=== PATIENT | female | born 1945 | race American Indian/Alaskan Native ===

== ENCOUNTER 2017-06-19 12:44 | Observation (INO) | payer MEDICARE, OTHER ==
[2017-06-19 12:59] VITALS: BMI 27.9
--- NOTE | 2017-06-19 13:07 | ED PDOC ---
Arrival/HPI <Glenn Portillo - Last Filed: 06/19/17 14:42> - General Historian: Patient - History of Present Illness Time/Duration: 1-3 hours (1.5 hrs prior to arrival) <Rafia Kwan - Last Filed: 06/19/17 14:57> - General Chief Complaint: Headache Time Seen by Provider: 06/19/17 12:48 - History of Present Illness Narrative History of Present Illness (Text): 06/19/17 12:52 CC: headache and eye problem Patient states about 11:30am, (1.5 hours ago) patient felt a headache on right temporal region that radiated down her right jaw. Patient stated the pain was sharp. Patient states the pain is no longer there. Patient states her right arm intermittently feels weaker than the left and feels this way today. Patient is right handed and states she feels that she just can't fully use her right arm. Patient states on Sunday, patient had a cloud covering half of her eye, she saw a Dr. Su in [place] who sent her to another doctor who sent her to Dr. Brasher who explained that the patient has an emboli in her vascular supply to her eye and that it was not fixable. Patient told Dr. Russo about the headache and right arm weakness and Dr. Russo told patient to come to ED. PMH: none PSH: none Family history: "mini-stroke"/TIAs, no known coagulopathy PMD: Dr. Russo (Rafia Kwan) Past Medical History - Provider Review Nursing Documentation Reviewed: Yes - Travel History Have you recently traveled outside [place] w/in the past 3 mons?: No <Rafia Kwan - Last Filed: 06/19/17 14:57> Family/Social History - Physician Review Nursing Documentation Reviewed: Yes Family/Social History: CVA/TIA, Diabetes (late onset) <Rafia Kwan - Last Filed: 06/19/17 14:57> Allergies/Home Meds <Glenn Portillo - Last Filed: 06/19/17 14:42> <Rafia Kwan - Last Filed: 06/19/17 14:57> Allergies/Adverse Reactions: Allergies blueberry Allergy (Verified 06/19/17 13:18) RASH Review of Systems - Physician Review All systems were reviewed & negative as marked: Yes - Review of Systems Eyes: Vision Changes (since sunday. curtain over part of right eye) ENT: Normal. absent: Hearing Changes, Tinnitus, Voice Changes Respiratory: Normal. absent: SOB, Cough, Sputum Cardiovascular: absent: Chest Pain, Palpitations, Edema Gastrointestinal: Diarrhea. absent: Abdominal Pain, Stool Changes, Constipation Genitourinary Female: absent: Dysuria, Frequency, Hematuria Musculoskeletal: Other (right arm weakness). absent: Arthralgias, Back Pain, Neck Pain Neurological: Headache (right temporal to jaw). absent: Speech Changes, Facial Droop, Disequilibrium Endocrine: absent: Diaphoresis, Polyuria, Polydipsia Psychiatric: absent: Anxiety, Depression, Suicidal Ideation <Eng,Rafia - Last Filed: 06/19/17 14:57> Physical Exam Temperature: Afebrile Blood Pressure: Normal Pulse: Regular Respiratory Rate: Normal Appearance: Positive for: Uncomfortable Mental Status: Positive for: Alert and Oriented X 3 - Systems Exam Head: Present: Atraumatic, Normocephalic. No: Contusion Pupils: Present: PERRL, Other (arcus senilis) Extroacular Muscles: Present: EOMI Conjunctiva: Present: Normal. No: Injected, Icteric Mouth: Present: Moist Mucous Membranes, Normal Lips, Normal Tounge. No: Dry, Drooling, Trismus Pharnyx: Present: Normal. No: ERYTHEMA, EXUDATE, TONSILS ENLARGED, Uvular Deviation Nose (External): Present: Atraumatic. No: Abrasion, Contusion, Laceration Respiratory/Chest: Present: Clear to Auscultation, Good Air Exchange. No: Respiratory Distress, Accessory Muscle Use Cardiovascular: Present: Regular Rate and Rhythm, Normal S1, S2 Abdomen: Present: Normal Bowel Sounds. No: Tenderness, Distention, Peritoneal Signs Upper Extremity: Present: Normal Inspection, Normal ROM, NORMAL PULSES, Capillary Refill < 2s. No: Edema Lower Extremity: Present: Normal Inspection, NORMAL PULSES, Normal ROM, Capillary Refill < 2 s. No: Edema Neurological: Present: GCS=15, CN II-XII Intact Skin: Present: Warm, Dry, Normal Color. No: Rashes Psychiatric: Present: Alert, Oriented x 3, Normal Insight, Normal Concentration <Eng,Rafia - Last Filed: 06/19/17 14:57> Vital Signs Temp Pulse Resp BP Pulse Ox 06/19/17 12:59 97.7 F 77 16 120/67 100 Medical Decision Making <Glenn Portillo - Last Filed: 06/19/17 14:42> Re-evaluation Time: 13:45 Reassessment Condition: Improved - EKG Interpretation Interpreted by ED Physician: Yes (NSR @63bpm) Type: 12 lead EKG <Rafia Kwan - Last Filed: 06/19/17 14:57> ED Course and Treatment: 06/19/17 14:13 Seen and examined with the resident. Our history and physical exam reveals an elderly woman who complains of acute onset of right-sided headache and right upper extremity weakness at approximately 11 AM today. Resident saw the patient prior to my arrival and ordered a CT scan and the patient was taken to CAT scan prior to my examination. The resident describes right upper extremity weakness, though on my examination there is no right upper extremity weakness. Resident reports that her weakness has resolved since she came back from CAT scan. The rest of her neurological examination is within normal limits. NIH is a 0. Patient is not a TPA candidate as her symptoms are too mild. 06/19/17 14:42 Discussed with , who will place on telemetry observation and consult with neurology. (Glenn Portillo) 06/19/17 13:25 Ct head without contrast, negative for acute stroke 06/19/17 14:54 EKG, CBC, CMP, Cardiac ISO NIH score 0 (Rafia Kwan) - Lab Interpretations Lab Results: 06/19/17 14:15 06/19/17 14:15 Lab Results 06/19/17 14:15: Sodium 144, Potassium 4.4, Chloride 105, Carbon Dioxide 28, Anion Gap 15, BUN 15, Creatinine 1.1, Est GFR ( Amer) 59, Est GFR (Non- Af Amer) 49, Random Glucose 68 L, Calcium 9.7, Total Bilirubin 0.2, AST 30, ALT 26, Alkaline Phosphatase 73, Lactate Dehydrogenase 417, Total Creatine Kinase 142, Troponin I < 0.01, Total Protein 7.3, Albumin 4.0, Globulin 3.4, Albumin/ Globulin Ratio 1.2 06/19/17 14:15: WBC 4.5, RBC 4.09, Hgb 10.8 L, Hct 34.6 L, MCV 84.6, MCH 26.4, MCHC 31.2, RDW 14.7 H, Plt Count 234, MPV 9.8, Gran % 30.0 L, Lymph % (Auto) 61.8 H, Phelps % (Auto) 6.0, Eos % (Auto) 1.5, Baso % (Auto) 0.7, Gran # 1.36 L, Lymph # (Auto) 2.8, Phelps # (Auto) 0.3, Eos # (Auto) 0.1, Baso # (Auto) 0.03 - RAD Interpretation Narrative RAD Interpretations (Text): 06/19/17 13:59 ct scan head without contrast: no active bleed or ischemic stroke noted (Rafia Kwan) Radiology Orders: 06/19/17 13:21 HEAD W/O CONTRAST [CT] Stat - Medication Orders Current Medication Orders: Discontinued Medications Aspirin (Aspirin) 325 mg PO STAT STA Stop: 06/19/17 14:00 Last Admin: 06/19/17 14:11 Dose: 325 mg Disposition/Present on Arrival - Present on Arrival Any Indicators Present on Arrival: No History of DVT/PE: No History of Uncontrolled Diabetes: No Urinary Catheter: No History of Decub. Ulcer: No - Disposition Have Diagnosis and Disposition been Completed?: Yes Disposition Time: 14:43 Patient Plan: Observation, Telemetry <Glenn Portillo - Last Filed: 06/19/17 14:42> - Present on Arrival Any Indicators Present on Arrival: No History of DVT/PE: No History of Uncontrolled Diabetes: No Urinary Catheter: No History of Decub. Ulcer: No - Disposition Have Diagnosis and Disposition been Completed?: Yes <Rafia Kwan - Last Filed: 06/19/17 14:57> - Disposition Diagnosis: Transient ischemic attack, Headache Disposition: HOSPITALIZED Patient Problems: Current Active Problems Problem Status Onset Transient ischemic attack Acute Headache Acute Condition: GOOD Forms: [employer] ([place])
--- NOTE | 2017-06-19 13:51 | CT ---
PROCEDURE: CT HEAD WITHOUT CONTRAST. HISTORY: right arm < Left arm strength. COMPARISON: None available. TECHNIQUE: Axial computed tomography images were obtained through the head/brain without intravenous contrast. Radiation dose: Total exam DLP = 778.54 mGy-cm. This CT exam was performed using one or more of the following dose reduction techniques: Automated exposure control, adjustment of the mA and/or kV according to patient size, and/or use of iterative reconstruction technique. FINDINGS: HEMORRHAGE: No intracranial hemorrhage. BRAIN: No mass effect or edema. No atrophy or chronic microvascular ischemic changes. VENTRICLES: Unremarkable. No hydrocephalus. CALVARIUM: Unremarkable. PARANASAL SINUSES: Unremarkable as visualized. No significant inflammatory changes. MASTOID AIR CELLS: Unremarkable as visualized. No inflammatory changes. OTHER FINDINGS: None. IMPRESSION: Normal CT of the Head. No intracranial mass, hemorrhage or evidence of acute infarct.
[2017-06-19 14:31] LABS: BASO # 0.03 K/mm3 (0.0-2.0); BASO % 0.7 % (0.0-3.0); EOS # 0.1 (0.0-0.7); EOS % 1.5 % (1.5-5.0); GRAN # 1.36 (1.4-6.5); HEMOGLOBIN 10.8 g/dL (12.0-16.0); LYMPH # 2.8 (1.2-3.4); LYMPH % 61.8 % (22.0-35.0); MEAN CELL VOLUME 84.6 fl (80.0-105.0); MEAN CORPUSCULAR HEMOGLOBIN 26.4 pg (25.0-35.0); MEAN CORPUSCULAR HGB CONC 31.2 g/dl (31.0-37.0); MEAN PLATELET VOLUME 9.8 fl (7.0-11.0); MONO # 0.3 (0.1-0.6); RBC 4.09 10^6/uL (3.5-6.1); RED CELL DISTRIBUTION WIDTH 14.7 % (11.5-14.5); WHITE BLOOD COUNT 4.5 10^3/ul (4.5-11.0)
[2017-06-19 14:37] LABS: ALB/GLOB RATIO 1.2 (1.1-1.8); ALT/SGPT 26 U/L (7-56); AST/SGOT 30 U/L (14-36); BLOOD UREA NITROGEN 15 mg/dL (7-21); CALCIUM 9.7 mg/dL (8.4-10.5); GFR AFRICAN-AMERICAN 59; GFR NON-AFRICAN AMERICAN 49
[2017-06-19] MEDS ORDERED: DEXTROSE 4 GM PO ONE (14:40)
[2017-06-19 14:49] LABS: TROPONIN I < 0.01 ng/mL
--- NOTE | 2017-06-19 15:47 | CP.PCM.CON ---
<Myah Navarro - Last Filed: 06/19/17 17:45> History of Present Illness - History of Present Illness History of Present Illness: PGY-[address] Bolton Consult: headache and eye problem Ms Teresa Goldman, 71F, c/o headache radiating to jaw and R arm weakness. Pt was diagnosed with an emboli at her eye blood vessel 3 days ago. Today, pt experienced a headache, sharp, radiating from R temporal region radiating down her right jaw, associated with R arm weakness. Patient is right handed and states she feels that she just can't fully use her right arm. All symptoms resolved while evaluated by the ED physician. (+) stress in family On Sunday, patient had a cloud covering half of her eye, she saw a Dr. Su in [place] who sent her to another doctor who sent her to Dr. Brasher who explained that the patient has an emboli in her vascular supply to her eye and that it was not fixable. Ct scan head without contrast: no active bleed or ischemic stroke noted MRA Head: unremarkable MRI head: No acute finding. 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 Denies drink, drug , smoke. All: blueberry Med: None PMD: Dr. Russo ([facility]) Review of Systems - Review of Systems All systems: reviewed and no additional remarkable complaints except Review of Systems: as in HPI Past Patient History - Past Social History Smoking Status: Never Smoked - CARDIAC Hx Cardiac Disorders: No - PULMONARY Hx Respiratory Disorders: No - NEUROLOGICAL Hx Neurological Disorder: No - HEENT Hx HEENT Problems: No - RENAL Other/Comment: bladder cancer - PSYCHIATRIC Hx Substance Use: No - SURGICAL HISTORY Other/Comment: Neobladder reconstruction 2007 - ANESTHESIA Hx Anesthesia: Yes Hx Anesthesia Reactions: No Hx Malignant Hyperthermia: No Meds Allergies/Adverse Reactions: Allergies Allergy/AdvReac Type Severity Reaction Status Date / Time blueberry Allergy RASH Verified 06/19/17 13:18 - Medications Medications: Current Medications Acetaminophen/Butalbital/Caffeine (Fioricet) 1 tab PO Q4H PRN PRN Reason: Headache Physical Exam - Constitutional Appears: Well - Head Exam Head Exam: ATRAUMATIC, NORMAL INSPECTION, NORMOCEPHALIC - Eye Exam Eye Exam: EOMI, Normal appearance, PERRL. absent: Scleral icterus Pupil Exam: NORMAL ACCOMODATION - ENT Exam ENT Exam: Mucous Membranes Moist - Neck Exam Additional comments: supple - Respiratory Exam Respiratory Exam: Clear to Auscultation Bilateral, NORMAL BREATHING PATTERN. absent: Rales, Rhonchi, Wheezes - Cardiovascular Exam Cardiovascular Exam: REGULAR RHYTHM, +S1, +S2 - Extremities Exam Extremities exam: Negative for: calf tenderness, tenderness - Neurological Exam Neurological exam: Alert, Oriented x3 Additional comments: CN 2-12 intact except LOSS OF UPPER VISUAL FIELD of R eye Speech: No aphasia motor: move all extremities equally sensory: intact [id number] coordination: intact. No overshoot - Psychiatric Exam Psychiatric exam: Normal Affect, Normal Mood - Skin Skin Exam: Dry, Normal Color Results - Vital Signs Recent Vital Signs: Last Vital Signs Temp 97.7 F 06/19/17 12:59 Pulse 73 06/19/17 15:24 Resp 16 06/19/17 15:24 BP 128/70 06/19/17 15:24 Pulse Ox 99 06/19/17 15:24 - Labs Result Diagrams: 06/19/17 14:15 06/19/17 14:15 Assessment & Plan - Assessment and Plan (Free Text) Plan: Ms Teresa Goldman, 71F, c/o R temporal headache with jaw pain and R arm weakness. Pt was diagnosed with an emboli at her R eye blood vessel 3 days ago. ROS is (+) for stress in family. Physical exam is (+) loss of upper visual field of R eye. Her [id number] coordination is intact. MRA Head is unremarkable. 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 Neurology ordered ESR, pending result. Tension Headache with mild migraine component - Fioricet q4 PRN for Headache loss of upper visual field of R eye secondary to emboli at R eye blood vessel Hx old lacuna stroke from R MCA distribution - Telemetry for possible arrthymia - Opthalmologist consult - Initiate ASA 81 and lipitor 40 <Rufino Bolton - Last Filed: 06/20/17 09:22> Meds - Medications Medications: Current Medications Acetaminophen/Butalbital/Caffeine (Fioricet) 1 tab PO Q4H PRN PRN Reason: Headache Last Admin: 06/20/17 02:22 Dose: 1 tab Aspirin (Ecotrin) 81 mg PO DAILY [facility] Atorvastatin Calcium (Lipitor) 40 mg PO HS [facility] Last Admin: 06/19/17 21:04 Dose: 40 mg Results - Vital Signs Recent Vital Signs: Last Vital Signs Temp 97.3 F L 06/20/17 06:00 Pulse 93 H 06/20/17 06:00 Resp 20 06/20/17 06:00 BP 117/71 06/20/17 06:00 Pulse Ox 98 06/20/17 06:00 - Labs Result Diagrams: 06/19/17 14:15 06/19/17 14:15 Labs: Laboratory Results - last 24 hr 06/19/17 06/20/17 19:15 07:29 ESR 74 H POC Glucose (mg/dL) 126 H Attending/Attestation - Attestation I have personally seen and examined this patient.: Yes I have fully participated in the care of the patient.: Yes I have reviewed all pertinent clinical information: Yes
[2017-06-19] MEDS ORDERED: methylPREDNISolone 1 GM in Sodium Chloride 0.9% 250 ML IV ONE (16:45)
--- NOTE | 2017-06-19 16:59 | MRI ---
PROCEDURE: MRI BRAIN WITHOUT CONTRAST HISTORY: headache cva COMPARISON: None. TECHNIQUE: Multiplanar, multisequence MR images of the brain were obtained without intravenous contrast enhancement. FINDINGS: HEMORRHAGE: None DWI: No evidence of an acute or early subacute infarction. BRAIN PARENCHYMA: No mass effect or edema. Minimal microvascular changes. No evidence of atrophy VENTRICLES: Unremarkable. No hydrocephalus. CRANIUM: Unremarkable. ORBITS: Grossly unremarkable. PARANASAL SINUSES/MASTOIDS: Clear VASCULAR SYSTEM: Skull base flow voids intact. OTHER FINDINGS: None. IMPRESSION: No acute finding
--- NOTE | 2017-06-19 17:16 | MRI ---
PROCEDURE: Magnetic Resonance Angiography Brain HISTORY: headache COMPARISON: None available. TECHNIQUE: 3D time of flight MR angiography of the intracranial arteries was performed. Rotating maximum intensity projection images were generated. FINDINGS: INTERNAL CAROTID ARTERIES: Unremarkable. The skull base, petrous, cavernous and supraclinoid segments are bilaterally widely patient. ANTERIOR CEREBRAL ARTERIES: Unremarkable. A1 and A2 segments are widely patent. Smaller distal branches unremarkable, as visualized. MIDDLE CEREBRAL ARTERIES: Unremarkable. M1 and M2 segments are widely patent. Perisylvian branches grossly symmetric. POSTERIOR CIRCULATION: Basilar Artery: Unremarkable. Distal Vertebral Arteries: Unremarkable. Posterior Cerebral Arteries: Unremarkable. Posterior Inferior Cerebellar Arteries: Unremarkable. ANEURYSM/ VASCULAR MALFORMATIONS: None. OTHER FINDINGS: None. IMPRESSION: Unremarkable MR angiography of the brain.
[2017-06-19] MEDS: Apap-Butalbital-Caffeine 325-50-40mg Tab PO PRN (21:39)
--- NOTE | 2017-06-19 22:00 | CARD ---
APPROVED REPORT EKG Measurement Heart [id number] <Conclusion> Normal sinus rhythm Normal ECG
[2017-06-20] MEDS: Apap-Butalbital-Caffeine 325-50-40mg Tab PO PRN ×2 (02:22→09:39)
[2017-06-20 06:00] VITALS: O2SAT 98
[2017-06-20] MEDS ORDERED: methylPREDNISolone 1 GM in Sodium Chloride 0.9% 250 ML IV ONE (10:22)
--- NOTE | 2017-06-20 10:34 | CP.PCM.PN ---
<MelanieMyah - Last Filed: 06/20/17 10:31> Subjective - Date & Time of Evaluation Date of Evaluation: 06/20/17 Time of Evaluation: 10:31 - Subjective Subjective: Neurology PGY-[address] Bolton Pt states that R temporal and R jaw pain resolved. Started L headache. just took fioricet. No change in vision, dizziness, CP, SOB, arm weakness. Objective - Vital Signs/Intake and Output Vital Signs (last 24 hours): Temp Pulse Resp BP Pulse Ox 97.3 F L 93 H 20 117/71 98 06/20/17 06:00 06/20/17 06:00 06/20/17 06:00 06/20/17 06:00 06/20/17 06:00 Intake and Output: 06/20/17 06/20/17 06:59 18:59 Intake Total 540 Balance 540 - Medications Medications: Current Medications Acetaminophen/Butalbital/Caffeine (Fioricet) 1 tab PO Q4H PRN PRN Reason: Headache Last Admin: 06/20/17 09:39 Dose: 1 tab Aspirin (Ecotrin) 81 mg PO DAILY [facility] Last Admin: 06/20/17 09:39 Dose: 81 mg Atorvastatin Calcium (Lipitor) 40 mg PO HS [facility] Last Admin: 06/19/17 21:04 Dose: 40 mg Methylprednisolone 1 gm/ (Sodium Chloride) 250 mls @ 500 mls/hr IV ONCE ONE Stop: 06/20/17 10:51 - Constitutional Appears: No Acute Distress - Head Exam Head Exam: ATRAUMATIC, NORMAL INSPECTION, NORMOCEPHALIC - Eye Exam Eye Exam: EOMI, Normal appearance, PERRL Pupil Exam: NORMAL ACCOMODATION - ENT Exam ENT Exam: Mucous Membranes Moist - Neck Exam Additional comments: supple, no pain on palpation - Respiratory Exam Respiratory Exam: Clear to Ausculation Bilateral, NORMAL BREATHING PATTERN - Cardiovascular Exam Cardiovascular Exam: REGULAR RHYTHM, +S1, +S2. absent: Murmur - Neurological Exam Neurological Exam: Alert, Awake, CN II-XII Intact, Oriented x3 Additional comments: CN 2-12 intact except LOSS OF UPPER VISUAL FIELD of R eye Speech: No aphasia motor: move all extremities equally, 5/5 sensory: intact [id number] coordination: intact. No overshoot Assessment and Plan - Assessment and Plan (Free Text) Plan: Ms Teresa Goldman, 71F, c/o R temporal headache with jaw pain and R arm weakness. Pt was diagnosed with an emboli at her R eye blood vessel 3 days ago. ROS is (+) for stress in family. Physical exam is (+) loss of upper visual field of R eye. Her ctzcqb-du-dlij coordination is intact. MRA Head is unremarkable. 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 Bolton <Rufino Bolton - Last Filed: 06/20/17 10:44> Objective - Vital Signs/Intake and Output Vital Signs (last 24 hours): Temp Pulse Resp BP Pulse Ox 97.3 F L 93 H 20 117/71 98 06/20/17 06:00 06/20/17 06:00 06/20/17 06:00 06/20/17 06:00 06/20/17 06:00 Intake and Output: 06/20/17 06/20/17 06:59 18:59 Intake Total 540 Balance 540 - Medications Medications: Current Medications Acetaminophen/Butalbital/Caffeine (Fioricet) 1 tab PO Q4H PRN PRN Reason: Headache Last Admin: 06/20/17 09:39 Dose: 1 tab Aspirin (Ecotrin) 81 mg PO DAILY [facility] Last Admin: 06/20/17 09:39 Dose: 81 mg Atorvastatin Calcium (Lipitor) 40 mg PO HS [facility] Last Admin: 06/19/17 21:04 Dose: 40 mg Methylprednisolone 1 gm/ (Sodium Chloride) 250 mls @ 500 mls/hr IV ONCE ONE Stop: 06/20/17 10:51 Attending/Attestation - Attestation I have personally seen and examined this patient.: Yes I have fully participated in the care of the patient.: Yes I have reviewed all pertinent clinical information, including history, physical exam and plan: Yes
[2017-06-20 13:15] VITALS: BP 133/65; PULSE 76; RESP 18; TEMP 98.2
--- NOTE | 2017-06-21 08:53 | HP ---
CHIEF COMPLAINT AND HISTORY OF PRESENT ILLNESS: This is a 71-year-old female, who is coming in to the hospital with complaints of right arm weakness. 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 She was seen by I reviewed his notes today and she was found to have a retinal vein occlusion. The patient was advised to go to see her primary doctor. The patient had called me yesterday saying that she was having symptoms and so I advised her to come to the hospital for further evaluation. The patient states that her right eye is feeling better. She is able to see better than she was before. She states her weakness in the arms is better. She states she was having headaches; they were sharp, mostly in the temporal area. She states that she has no nausea, no vomiting. She has no abdominal pain or back pain. No dysuria, frequency or nocturia. She denies any other weakness in the upper or lower extremities. REVIEW OF SYMPTOMS: All other review of symptoms are within normal limits except what was mentioned. She does have a history of an old lacunar stroke in the right hemisphere distribution according to the MRI that was done. The patient had an initial CAT scan that showed no active disease. She was seen by Dr. Bolton, he had given her steroids for possible temporal arteritis. The patient states that she is feeling better. She had no other complaints. ALLERGIES: BLUEBERRY. HOME MEDICATIONS: Have been reviewed on the MRF. No new medications. PAST MEDICAL HISTORY: She has a history of diagnosed in 1995. FAMILY HISTORY: There is no significant family history. SOCIAL HISTORY: She denies smoking, drugs or alcohol. PHYSICAL EXAMINATION: VITAL SIGNS: Temperature is 97.3, pulse is 70, blood pressure is 117/71, respirations 20, O2 saturation 98%. Height is 5 feet 4 inches, weight is 157 pounds, BMI is 26.9. GENERAL: The patient lying in bed, uncomfortable, and in no acute distress. HEENT: Atraumatic and normocephalic. Anicteric sclerae. Moist mucosa. Hemet conjunctivae. No oral lesions. NECK: No JVD, anterior and posterior adenopathy, thyromegaly, or bruits. CARDIOVASCULAR: S1 and S2 regular. No murmur, rubs, or gallop. LUNGS: Clear to auscultation bilaterally. No wheezes, rales, or rhonchi. ABDOMEN: Bowel sounds are positive. Soft, nontender and nondistended. No hepatosplenomegaly. No rebound and no guarding EXTREMITIES: No cyanosis, clubbing, or edema. NEUROLOGIC: No facial asymmetry. Tongue is midline. No uvula deviation. Power is 5/5 upper extremity and lower extremity. Sensation intact in upper extremity and lower extremity. PSYCHIATRIC: She is awake, alert and oriented x3. No anxiety or depression. She has normal affect. GENITOURINARY: No CVA tenderness. VASCULAR: 2+ pulses in the carotid pulses and pedal pulses. SKIN: No erythema or nodules SPINE: Shows normal curvature. LABORATORY DATA: Labs have been reviewed. White count of 4.5, hemoglobin 10.8. ESR is 74. Chemistry shows a troponin of 0.01. CT of the head done shows no acute findings. EKG shows sinus rhythm at 63. She had an MRA that was unremarkable. MRI showed no acute findings. ASSESSMENT: 1. Right retinal vein occlusion, improving. 2. History of old lacunar infarct. PLAN: The patient is currently comfortable. The patient is going to be on aspirin, I did advise to continue aspirin at home as well as Lipitor, I wrote a prescription. She is going to be followed up as an outpatient. Condition is stable. Activities, increase as tolerated. Khai Dixon MD
== END 2017-06-20 16:34 | disposition home or self-care (01) ==
LOC: ED 12:44 → ERH 14:41 → 3RSO 17:07
PROVIDERS: ADMIT Internal Medicine Nephrology; ATTEND Internal Medicine Nephrology
DX: H34.8112 Central retinal vein occlusion, right eye, stable (principal); Z86.73 Personal history of transient ischemic attack (TIA), and cerebral infarction without residual deficits; R53.1 Weakness; R68.84 Jaw pain; G44.209 Tension-type headache, unspecified, not intractable
CPT/HCPCS: 70450; 70544; 70551; 80053; 82550; 82948; 83615; 84484; 85025; 85651; 93005; 99285; G0378; J2930